=== PATIENT | female | born 1940 | race Caucasian/White ===

== ENCOUNTER 2016-12-20 06:26 | Day surgery (SDC) | payer MEDICARE, MEDICAID ==
[~2016-12-20] VITALS: Ht 165.1 cm; Wt 74.8 kg
[~2016-12-20 06:26] MED LIST: BENZONATATE200 MG PO; CIPROFLOXACN500 MG PO; CLARITIN10 M1 PO; DITROPAN PO; ESCITALOPRAM OXA5 MG PO; MELOXICAM15 MG PO; PRILOSEC20 MG/CAP PO; ROBITUSSIN AC10 ML PO; ZOVIRAX51 TOP
[2016-12-20 09:11] VITALS: BP 127/76
== END 2016-12-20 09:30 | disposition home or self-care (01) ==
LOC: ENDO 06:26 → ORM 09:00 → ENDO 09:15
PROVIDERS: ATTEND Internal Medicine Gastroenterology
PROC: 0DBN8ZX Excision of Sigmoid Colon, Via Natural or Artificial Opening Endoscopic, Diagnostic (ICD-10-PCS; principal; 2016-12-20)
PROC: 0DBP8ZX Excision of Rectum, Via Natural or Artificial Opening Endoscopic, Diagnostic (ICD-10-PCS; 2016-12-20)
DX: K64.4 Residual hemorrhoidal skin tags (principal); K57.30 Diverticulosis of large intestine without perforation or abscess without bleeding; D12.5 Benign neoplasm of sigmoid colon; D12.8 Benign neoplasm of rectum; K64.8 Other hemorrhoids; B96.81 Helicobacter pylori [H. pylori] as the cause of diseases classified elsewhere; K21.9 Gastro-esophageal reflux disease without esophagitis; K44.9 Diaphragmatic hernia without obstruction or gangrene

== ENCOUNTER 2018-12-26 15:02 | Emergency (ER) | payer MEDICARE, MEDICAID ==
[~2018-12-26] VITALS: Ht 165.1 cm; Wt 75.0 kg
[2018-12-26] MEDS ORDERED: HYDROCO/APAP1 TA9 PO (16:33)
[2018-12-26 16:55] VITALS: BP 138/76
== END 2018-12-26 16:56 | disposition home or self-care (01) ==
LOC: ED 15:02
PROC: 0HQ1XZZ Repair Face Skin, External Approach (ICD-10-PCS; principal; 2018-12-26)
DX: S01.111A Laceration without foreign body of right eyelid and periocular area, initial encounter (principal); S80.01XA Contusion of right knee, initial encounter; S80.02XA Contusion of left knee, initial encounter; S16.1XXA Strain of muscle, fascia and tendon at neck level, initial encounter; W01.198A Fall on same level from slipping, tripping and stumbling with subsequent striking against other object, initial encounter; Y92.481 Parking lot as the place of occurrence of the external cause; Y93.89 Activity, other specified

== ENCOUNTER 2020-02-14 14:39 | Emergency (ER) | payer MEDICARE, MEDICAID ==
[~2020-02-14] VITALS: Ht 165.1 cm; Wt 69.1 kg
[~2020-02-14 14:39] MED LIST changes: -DITROPAN PO; +DITROPAN5 MG/TA1 PO; +HYDROCO/APAP1 TA9 PO
[2020-02-14 17:10] VITALS: BP 128/76
== END 2020-02-14 17:10 | disposition home or self-care (01) ==
LOC: ED 14:39
PROC: 0HQ1XZZ Repair Face Skin, External Approach (ICD-10-PCS; principal; 2020-02-14)
DX: S01.112A Laceration without foreign body of left eyelid and periocular area, initial encounter (principal); S80.02XA Contusion of left knee, initial encounter; R07.81 Pleurodynia; M25.532 Pain in left wrist; W01.0XXA Fall on same level from slipping, tripping and stumbling without subsequent striking against object, initial encounter; Y92.481 Parking lot as the place of occurrence of the external cause

== ENCOUNTER 2021-12-26 22:14 | Observation (INO) | payer MEDICARE, MEDICAID ==
[~2021-12-26] VITALS: Ht 160 cm; Wt 72.2 kg
[2021-12-26 22:30] VITALS: BP 138/78
[2021-12-26 22:46] VITALS: BP 123/82
[2021-12-26 23:00] VITALS: BP 147/75
[2021-12-26 23:15] VITALS: BP 125/78
[2021-12-26 23:31] VITALS: BP 157/80
[2021-12-26 23:37] LABS: HEMATOCRIT 37.9 % (37.0-47.0); HEMOGLOBIN 12.6 g/dl (12.0-16.0); IMMATURE GRANULOCYTES 0.5 % (0.0-5.0); MEAN CELL VOLUME 88.8 fL CALC (80.0-100.0); MEAN CORPUSCULAR HGB 29.5 pG CALC (26.0-32.0); MEAN CORPUSCULAR HGB CONC 33.2 g/dL CAL (32.0-36.0); NEUT# 3.7 thou/uL (2.00-7.15); RED BLOOD COUNT 4.27 mill/uL (4.20-5.60); RED CELL DISTRI WIDTH 13.6 % (11.5-15.5)
[2021-12-26 23:45] VITALS: BP 146/85
[2021-12-26 23:54] LABS: ALBUMIN 4.2 g/dL (3.2-5.0); CREATININE 1.2 mg/dL (0.5-1.0); POTASSIUM 3.7 mmol/l (3.5-5.1); TOTAL PROTEIN 7.3 g/dL (6.3-8.2)
[2021-12-26 23:55] LABS: BILIRUBIN, TOTAL 0.2 mg/dL (0.0-1.4)
[2021-12-27] VITALS (10 sets, daily range): BP systolic 130–155; BP diastolic 66–86
--- NOTE | 2021-12-27 04:54 | NUR ---
FLEET ENEMA DONE, PT USED THE BATHROOM AFTER WITH SLIGHT RELIEF.
--- NOTE | 2021-12-27 06:25 | NUR ---
PATIENT TAKEN TO ROOM 261. REPORT GIVEN TO YOSELYN.
--- NOTE | 2021-12-27 10:43 | NUR ---
PT ALERT/OX3 ASSESSMENT AND ADMISSION COMPLETED. VS COMPLETED. IV SITE NOTED. TOLERATED MEDICATIONS WELL. PT CONSTIPATED. PT DENIES ADDITIONAL NEEDS AT THE TIME.
--- NOTE | 2021-12-27 10:44 | NUR ---
SOAP LEANNA ENEMA TO BE ADMINSITERED.
--- NOTE | 2021-12-27 11:59 | NUR ---
PT TOLERATED ENEMA WELL BSC. SMALL BM AND LIQUID.
--- NOTE | 2021-12-27 12:09 | NUR ---
PT CREAM TO BE GIVEN LATE PER CURRENT BM .ASWELL MEDICATION PROVIDED LATE.
[2021-12-27] MEDS ORDERED: POLYETHYLENE GL17 GM PO (15:06)
[2021-12-27] MEDS ORDERED: SENNA-PLUS1 TAB PO (15:06)
[2021-12-27] MEDS ORDERED: HYDROCORTISONE1 % TOP (15:07)
--- NOTE | 2021-12-27 16:45 | NUR ---
Discharge instructions given. Patient verbalizes understanding of same. Discharged in stable condition via Wheelchair to Home with staff. All belongings sent with pt. IV REMOVED.
== END 2021-12-27 16:41 | disposition home or self-care (01) ==
LOC: ED 22:14 → ED-I 12-27 03:25 → ED 12-27 04:14 → MS2 12-27 04:15
PROVIDERS: Internal Medicine; ADMIT Internal Medicine; ATTEND Internal Medicine
DX: K59.00 Constipation, unspecified (principal); K64.4 Residual hemorrhoidal skin tags; N83.8 Other noninflammatory disorders of ovary, fallopian tube and broad ligament; F41.9 Anxiety disorder, unspecified; K44.9 Diaphragmatic hernia without obstruction or gangrene; Z90.710 Acquired absence of both cervix and uterus; Z20.822 Contact with and (suspected) exposure to COVID-19
CPT/HCPCS: J3475; Q9967